=== PATIENT | male | born 1950 | race Caucasian/White ===

== ENCOUNTER 2020-01-12 14:52 | Outpatient (CLI) | payer MEDICARE, OTHER ==
--- NOTE | 2020-01-12 15:41 | ULT ---
BILATERAL RENAL ULTARSOUND: HISTORY: Renal calculi. FINDINGS: The right kidney measures 10.5 cm in length and the left kidney measures 11.4 cm in length. Cortical echogenicity and thickness is normal. No focal mass, hydronephrosis, or shadowing calculi are ident ified. The urinary bladder is unremarkable with a volume of 56 cc. IMPRESSION: Normal exam. POS: [facility]
== END 2020-01-12 14:53 | disposition home or self-care (01) ==
LOC: BICULT 14:52
PROVIDERS: ATTEND Urology
DX: N20.0 Calculus of kidney (principal)
CPT/HCPCS: 76770

== ENCOUNTER 2022-01-17 10:20 | Outpatient (CLI) | payer MEDICARE, OTHER ==
[2022-01-17 12:16] LABS: Bilirubin Neg (Negative); Blood, Urine Negative (Negative); Clarity Slightly Cloudy (Clear); Glucose, Urine (Dipstick) Normal (Negative); Ketone, Urine Negative (Negative); Leukocyte 500 (Negative); Nitrite Negative (Negative); Protein, Urine (Dipstick) 15 mg/dl (Neg-Trace); Urobilinogen Normal mg/dL (Less than 2)
[2022-01-17 12:23] LABS: Hemoglobin 12.2 g/dL (13.5-17.5); Mean Corpuscular HGB CONC 33.8 g/dL (32.0-36.0); Mean Corpuscular Hemoglobin 28.5 pg (27.0-33.0); Mean Corpuscular Volume 84.3 fl (81.2-95.1); Mean Platelet Volume 11.5 fl (7.4-10.4); Platelet Count 120 10x3/uL (150-450); RBC Distribution Width 12.9 % (11.5-14.5); Red Blood Cell (RBC) Count 4.28 10x6/uL (4.32-5.72)
[2022-01-17 12:24] LABS: Bacteria/HPF Rare-Few HPF (None Seen); RBC/HPF 0-3 HPF (0-3)
[2022-01-17 12:40] LABS: Anion Gap 12 mmol/L (10-20); BUN (Urea Nitrogen) 16 mg/dL (8.4-25.7); Calc. Creatinine Clearance 0 mL/min (70-130); Calcium 8.9 mg/dL (7.8-10.44); Carbon Dioxide 28 mmol/L (23-31); Chloride 105 mmol/L (98-107); Glucose 99 mg/dL (80-115); Sodium 141 mmol/L (136-145)
== END 2022-01-17 10:21 | disposition home or self-care (01) ==
LOC: LABBT 10:20
PROVIDERS: ATTEND Urology
DX: Z01.818 Encounter for other preprocedural examination (principal); Z20.822 Contact with and (suspected) exposure to COVID-19
CPT/HCPCS: 80048; 81001; 85027; 87086; 93005; U0003; U0005; 93010

== ENCOUNTER 2022-01-18 10:20 | Day surgery (SDC) | payer MEDICARE, OTHER ==
[2022-01-17 11:52] VITALS: BMI 28.5
[2022-01-18] MEDS ORDERED: fentaNYL Citrate/PF 100 MCG/2 ML SYRINGE ONE (12:48)
[2022-01-18] MEDS ORDERED: Iopamidol 15 ML ONE (12:53)
[2022-01-18] MEDS ORDERED: Levofloxacin 500 mg/D5W 100 ml Premix Bag ONE (13:30)
[2022-01-18] MEDS ORDERED: Dexamethasone 20 MG/5 ML VIAL ONE (13:38)
[2022-01-18] MEDS ORDERED: PROPOFOL 200 MG/20 ML VIAL ONE (13:38)
[2022-01-18] MEDS ORDERED: ePHEDrine 50 MG/ML VIAL ONE (13:38)
[2022-01-18] MEDS ORDERED: Ketorolac Tromethamine 30 MG/ML VIAL ONE (13:38)
[2022-01-18] MEDS ORDERED: PHENYLEPHRINE-NS 100 MCG/ML 10 ML SYRINGE ONE (13:38)
[2022-01-18] MEDS ORDERED: Ondansetron PF 4 MG/2 ML Vial ONE (13:38)
[2022-01-18] MEDS ORDERED: Lidocaine 1% PF 5 ML VIAL ONE (13:38)
[2022-01-18] MEDS ORDERED: Glycopyrrolate 0.2 MG/ML 5 ML SYRINGE ONE (13:38)
[2022-01-18] MEDS ORDERED: Phenazopyridine HCl 100 MG TAB ONE (14:34)
[2022-01-18] MEDS ORDERED: Oxybutynin 5 MG TAB ONE (14:34)
== END 2022-01-18 15:30 | disposition home or self-care (01) ==
LOC: SDC 10:20
PROVIDERS: ATTEND Urology
PROC: 0TC38ZZ Extirpation of Matter from Right Kidney Pelvis, Via Natural or Artificial Opening Endoscopic (ICD-10-PCS; principal; 2022-01-18)
PROC: 0TC68ZZ Extirpation of Matter from Right Ureter, Via Natural or Artificial Opening Endoscopic (ICD-10-PCS; 2022-01-18)
PROC: 0T768DZ Dilation of Right Ureter with Intraluminal Device, Via Natural or Artificial Opening Endoscopic (ICD-10-PCS; 2022-01-18)
DX: N20.2 Calculus of kidney with calculus of ureter (principal); N21.0 Calculus in bladder; Z79.899 Other long term (current) drug therapy
CPT/HCPCS: 52356; 74420; 82365; C2617; 88300; J1100; J1885; J1956; J2405; J2704; J3490; Q9967